=== PATIENT | female | born 1980 | race Caucasian/White ===

== ENCOUNTER 2018-04-24 12:42 | Emergency (ER) | payer MEDICAID ==
[2018-04-24] MEDS ORDERED: Lidocaine 2% 5 ML SDV INJECT ONE (15:42)
[2018-04-24] MEDS ORDERED: Sulfamethoxazole/Trimethoprim 800-160 MG Tab PO ONE (16:15)
--- NOTE | 2018-04-24 16:18 | EDM.PDOC ---
ED HPI GENERAL MEDICAL PROBLEM - General Chief Complaint: Skin Complaint Stated Complaint: ABCESS ON LEFT ARM AND PAINFUL Time Seen by Provider: 04/24/18 16:00 Source of Information: Reports: Patient History Limitations: Reports: No Limitations - History of Present Illness INITIAL COMMENTS - FREE TEXT/NARRATIVE: Presents with left arm swelling and pain x 2 days, denies injury, denies injection into site, denies illicit drug use. Onset Date: 04/23/18 Duration: Day(s): (2) Location: Reports: Upper Extremity, Left Quality: Reports: Ache Severity: Moderate Worsens with: Reports: None - Related Data Home Meds: Home Meds Sulfamethoxazole/Trimethoprim [Bactrim Ds Tablet] 1 each PO BID 10 Days #20 tablet 04/24/18 [Rx] Past Medical History - Infectious Disease History Infectious Disease History: Reports: MRSA Social & Family History - Tobacco Use Smoking Status *Q: Current Every Day Smoker Tobacco Use Within Last Twelve Months: Cigarettes - Recreational Drug Use Recreational Drug Use: No ED ROS GENERAL - Review of Systems Review Of Systems: ROS reveals no pertinent complaints other than HPI. ED EXAM, SKIN/RASH Exam: See Below Exam Limited By: No Limitations General Appearance: Alert, WD/WN, No Apparent Distress, Anxious Ears: Normal External Exam Nose: Normal Inspection Throat/Mouth: No Airway Compromise Head: Atraumatic, Normocephalic Respiratory/Chest: No Respiratory Distress Peripheral Pulses: 2+: Radial (L) Extremities: Normal Range of Motion, Other (2.5 x 2.5 cm induration and tenderness to left forearm) Neurological: Alert, No Motor/Sensory Deficits Psychiatric: Normal Affect Skin: Other (as above) Location, Skin: Upper Extremity, Left ED SKIN PROCEDURES - I&D Skin Prep: Providone-Iodine (Betadine) Local Anesthesia: Lidocaine: 2% Plain Local Anesthetic Volume: 2cc Area Incised With: 11 Blade Drainage: Purulent, Bloody Probed to Break Up Loculations: Yes Packed With: 1/2 in. Iodoform Sterile Dressinx4(s) Complications: No Course - Orders/Labs/Meds Orders: Active Orders 24 hr Category Date Time Status CULTURE ROUTINE + SMEAR [RM] Stat Lab 04/24/18 16:13 Ordered Meds: Medications Discontinued Medications Generic Name Dose Route Start Last Admin Trade Name Freq PRN Reason Stop Dose Admin Lidocaine 5 ml 04/24/18 15:42 Xylocaine-Mpf 2% INJECT 04/24/18 15:43 ONETIME ONE Trimethoprim/Sulfamethoxazole 1 tab 04/24/18 16:15 Septra Ds PO 04/24/18 16:16 ONETIME ONE Departure - Departure Time of Disposition: 16:24 Disposition: Home, Self-Care 01 Condition: Good Clinical Impression: Abscess - Discharge Information *PRESCRIPTION DRUG MONITORING PROGRAM REVIEWED*: No *COPY OF PRESCRIPTION DRUG MONITORING REPORT IN PATIENT LOGAN: Not Applicable Prescriptions: Sulfamethoxazole/Trimethoprim [Bactrim Ds Tablet] 1 each PO BID 10 Days #20 tablet Instructions: Skin Abscess Referrals: PCP,None [Primary Care Provider] - Forms: ED Department Discharge Additional Instructions: Fill prescription for Bactrim. Return to the ER or follow up with your doctor in 2 days for recheck. Return to the ER sooner if symptoms worsen. - My Orders Last 24 Hours: My Active Orders 04/24/18 16:13 CULTURE ROUTINE + SMEAR [RM] Stat - Assessment/Plan Last 24 Hours: My Active Orders 04/24/18 16:13 CULTURE ROUTINE + SMEAR [RM] Stat
== END 2018-04-24 16:35 | disposition home or self-care (01) ==
LOC: FB.ED 12:42
DX: L02.414 Cutaneous abscess of left upper limb (principal); F17.210 Nicotine dependence, cigarettes, uncomplicated
CPT/HCPCS: 10060; 87070; 87205; 99283; A9270